=== PATIENT | male | born 1945 | race Caucasian/White ===

== ENCOUNTER 2017-12-28 17:49 | Emergency (ER) | payer MEDICARE ==
[~2017-12-28] VITALS: Ht 182.9 cm; Wt 119.0 kg
[2017-12-28 17:54] VITALS: BP 146/73; PULSE 68; RESP 18; TEMP 98.3; O2SAT 97
--- NOTE | 2017-12-28 18:27 | PD ---
HPI Chief Complaint: Skin Problem Time Seen by Provider: 18:12 Travel History International Travel<30 days: No Contact w/Intl Traveler<30days: No Traveled to known affect area: No History of Present Illness HPI Patient comes to the emergency department complaining of possible infection of his left foot began 3 or 4 days ago. Patient reports he chronically has edema in his bilateral lower extremities however his left lower extremities got worse over the past 3 days. Patient reports having a burning sensation over the posterior aspect of the heel and dorsal aspect of his left foot. Patient denies any known injury. Patient reports he did fly from [place] to [place] 2 weeks ago then 5 days ago drove from [place] to [place]. Patient reports he has been elevating his feet that was working until the past 3 days for the edema. Patient denies any fever, chest pain, shortness of breath, dyspnea on exertion, trauma, or IV drug use. PFSH Past Medical History Medical History: Denies Significant Hx Social History Alcohol Use: Yes Tobacco Use: No Substance Use: No Allergies-Medications (Allergen,Severity, Reaction): Coded Allergies: No Known Allergies (Unverified , 12/28/17) Reported Meds & Prescriptions Reported Meds & Active Scripts Active Clotrimazole AF Topical (Clotrimazole) 1% Cream 1 Applic TOPICAL BID Bactrim DS (Sulfamethoxazole-Trimethoprim) 800-160 Mg Tab 1 Tab PO BID Review of Systems Except as stated in HPI: all other systems reviewed are Neg Physical Exam Narrative GENERAL: Well-developed, overly nourished, in no acute distress, and non-ill appearing. SKIN: Mildly erythematous with flaking skin noted over the dorsal aspect of the left foot. It is tender to palpation. No crepitus, induration, fluctuation, or streaking. Appears slightly fungal in appearance possibly early cellulitis. HEAD: Atraumatic. Normocephalic. EYES: Pupils equal and round. EOMI. No scleral icterus. No injection or drainage. ENT: No nasal bleeding or discharge. Mucous membranes pink and moist. NECK: Trachea midline. Supple. No nuclear rigidity. CARDIOVASCULAR: Dorsal pulses 2+, intact, equal bilaterally. Capillary refill less than 2 seconds. RESPIRATORY: No accessory muscle use. No respiratory distress. MUSCULOSKELETAL: No obvious deformities. No clubbing. No cyanosis. 1+ nonpitting edema in the right lower extremity and 2+ nonpitting edema left lower extremity. Full range of motion. Ankle: Neagative anterior draw and Gracia test. Negative Sierra's sign. No laxity noted with passive inversion and eversion of BL ankles. Negative squeeze test. Pulses equal BL distal to injury. Capillary refill less than 2 seconds distal to injury and equal BL. Sensation equal BL 1st web space. FROM of toes distal to injury and equal BL. NV intact distal to injury and equal BL. Dorsal pulses equal BL. NEUROLOGICAL: Awake and alert. No obvious cranial nerve deficits. Motor grossly within normal limits. Normal speech. PSYCHIATRIC: Appropriate mood and affect; insight and judgment normal. Data Data Last Documented VS Vital Signs Date Time Temp Pulse Resp B/P (MAP) Pulse Ox O2 Delivery O2 Flow Rate FiO2 12/28/17 18:36 96 12/28/17 17:54 98.3 68 18 146/73 (97) Orders Orders Complete Blood Count With Diff (12/28/17 18:24) Basic Metabolic Panel (Bmp) (12/28/17 18:24) Act Partial Throm Time (Ptt) (12/28/17 18:24) Prothrombin Time / Inr (Pt) (12/28/17 18:24) Magnesium (Mg) (12/28/17 18:24) Iv Access Insert/Monitor (12/28/17 18:24) Ecg Monitoring (12/28/17 18:24) Oximetry (12/28/17 18:24) Oxygen Administration (12/28/17 18:24) Us Leg Venous Doppler (12/28/17 18:24) Sodium Chloride 0.9% Flush (Ns Flush) (12/28/17 18:30) Foot, Complete ([id number]) (12/28/17 ) Ed Discharge Order (12/28/17 20:42) Labs Laboratory Tests Test 12/28/17 18:35 White Blood Count 9.7 TH/MM3 Red Blood Count 4.41 MIL/MM3 Hemoglobin 13.5 GM/DL Hematocrit 38.8 % Mean Corpuscular Volume 88.1 FL Mean Corpuscular Hemoglobin 30.5 PG Mean Corpuscular Hemoglobin Concent 34.7 % Red Cell Distribution Width 12.7 % Platelet Count 198 TH/MM3 Mean Platelet Volume 8.4 FL Neutrophils (%) (Auto) 70.9 % Lymphocytes (%) (Auto) 15.6 % Monocytes (%) (Auto) 9.5 % Eosinophils (%) (Auto) 2.8 % Basophils (%) (Auto) 1.2 % Neutrophils # (Auto) 6.9 TH/MM3 Lymphocytes # (Auto) 1.5 TH/MM3 Monocytes # (Auto) 0.9 TH/MM3 Eosinophils # (Auto) 0.3 TH/MM3 Basophils # (Auto) 0.1 TH/MM3 CBC Comment DIFF FINAL Differential Comment Prothrombin Time 10.5 SEC Prothromb Time International Ratio 1.0 RATIO Activated Partial Thromboplast Time 28.7 SEC Blood Urea Nitrogen 12 MG/DL Creatinine 0.59 MG/DL Random Glucose 84 MG/DL Calcium Level 8.6 MG/DL Magnesium Level 2.1 MG/DL Sodium Level 138 MEQ/L Potassium Level 3.9 MEQ/L Chloride Level 105 MEQ/L Carbon Dioxide Level 25.4 MEQ/L Anion Gap 8 MEQ/L Estimat Glomerular Filtration Rate 136 ML/MIN MDM Medical Decision Making Medical Screen Exam Complete: Yes Emergency Medical Condition: Yes Interpretation(s) Last Impressions Lower Extremity Ultrasound 12/28/17 1824 Signed Impressions: Service Date/Time: Thursday, December 28, 2017 19:48 - CONCLUSION: Normal examination. Prominent inguinal lymph nodes Corbin Alcantara MD Foot X-Ray 12/28/17 0000 Signed Impressions: Service Date/Time: Thursday, December 28, 2017 18:45 - CONCLUSION: No acute bony findings Corbin Alcantara MD Differential Diagnosis Abscess, cellulitis, DVT, bone spur, tinea, dermatitis Narrative Course There is no evidence of necrotizing fasciitis at this time. There is no evidence of abscess. There is no evidence of local joint space involvement. There is no evidence of deep venous thrombosis. The patient will be discharged on antibiotics and topical antifungal. The patient was given signs and symptoms warnings for worsening infection, such as spreading of redness, increasing pain , and/or swelling, associated heat, or fever and instructed to return immediately if these signs or symptoms worsen. The patient is to follow up with physician or store receiver in 2 days for recheck or return here in 2 days for recheck if unable to establish outpatient follow up. Sooner if worsens or as needed. The patient agrees with plan. Patient in no obvious distress upon re-evaluation. All pertinent laboratory/ Radiology result(s) discussed with patient. Patient was asked if they wanted to speak to my attending, which the patient did not wish to do at this time. Any questions/concerns in reference to patient diagnosis/condition discussed and clarified prior to patient's discharge. Reinforced sheer importance of close follow up with patient's primary physician or primary care clinic, store receiver, or to return here in 2 days for recheck. Instructed patient to return to ED immediately, if symptoms return/worsen. Patient showed understanding of above instructions. Further instructions and recommendations were detailed in discharge paperwork. Patient ambulated without difficulty out of ED at discharge. Diagnosis Primary Impression: Left foot infection Referrals: Aamir Nesbitt DPM Patient Instructions: Athlete's Foot (ED), Cellulitis (ED), General Instructions Additional Instructions: Follow-up with your primary care physician, store receiver, return here in 2 days for recheck. Take all medication as prescribed. Return to the emergency department if symptoms get worse. Med/Other Pt SpecificInfo: Prescription(s) given Scripts Clotrimazole Topical (Clotrimazole AF Topical) 1% Cream 1 APPLIC TOPICAL BID for Infection, #15 GM 0 Refills Prov: Yamilex Mckenna MD 12/28/17 Sulfamethoxazole-Trimethoprim (Bactrim DS) 800-160 Mg Tab 1 TAB PO BID for Infection, #20 TAB 0 Refills Prov: Yamilex Mckenan MD 12/28/17 Disposition: 01 DISCHARGE HOME Condition: Stable Massimo Xie Dec 28, 2017 18:27
[2017-12-28] MEDS ORDERED: SODIUM CHLORIDE 0.9% FLUSH 10 ML FLUSH IVF PRN (18:30)
[2017-12-28 18:36] VITALS: O2SAT 96
[2017-12-28 18:42] LABS: AUTOMATED NEUTROPHIL # 6.9 TH/MM3 (1.8-7.7); BASOPHIL # 0.1 TH/MM3 (0-0.2); BASOPHIL % 1.2 % (0.0-2.0); EOSINOPHIL # 0.3 TH/MM3 (0-0.4); EOSINOPHIL % 2.8 % (0.0-4.0); HEMATOCRIT 38.8 % (39.0-51.0); HEMOGLOBIN 13.5 GM/DL (13.0-17.0); LYMPH % 15.6 % (9.0-44.0); LYMPHOCYTE # 1.5 TH/MM3 (1.0-4.8); MEAN CELL VOLUME 88.1 FL (80.0-100.0); MEAN CORPUSCULAR HEMOGLOBIN 30.5 PG (27.0-34.0); MEAN CORPUSCULAR HGB CONC 34.7 % (32.0-36.0); MEAN PLATELET VOLUME 8.4 FL (7.0-11.0); MONO % 9.5 % (0.0-8.0); MONOCYTE # 0.9 TH/MM3 (0-0.9); NEUT % 70.9 % (16.0-70.0); PLATELET COUNT 198 TH/MM3 (150-450); RED BLOOD COUNT 4.41 MIL/MM3 (4.50-5.90); RED CELL DISTRIBUTION WIDTH 12.7 % (11.6-17.2); WHITE BLOOD COUNT 9.7 TH/MM3 (4.0-11.0)
[2017-12-28 19:01] LABS: CALCIUM 8.6 MG/DL (8.5-10.1)
[2017-12-28 19:02] LABS: BICARBONATE 25.4 MEQ/L (21.0-32.0); MAGNESIUM 2.1 MG/DL (1.5-2.5)
[2017-12-28 19:05] LABS: CREATININE 0.59 MG/DL (0.60-1.30)
[2017-12-28 19:19] LABS: PROTHROMBIN TIME - PATIENT 10.5 SEC (9.8-11.6)
--- NOTE | 2017-12-28 19:48 | RADRPT ---
EXAM DATE/TIME: 12/28/2017 18:45 [facility] COMPARISON: No previous studies available for comparison. INDICATIONS : Left foot swelling. MEDICAL HISTORY : None. SURGICAL HISTORY : None. ENCOUNTER: Initial ACUITY: 3 days PAIN SCORE: 6/10 LOCATION: Left foot FINDINGS: Three view examination of the left foot demonstrates destructive change, dislocation, or fracture. The tarsal bones appear intact. The interphalangeal and metatarsophalangeal joints are intact. The calcaneus is intact. Bony mineralization is normal. Prominent diffuse soft tissue swelling CONCLUSION: No acute bony findings Corbin Alcantara MD on December 28, 2017 at 19:45 Board Certified Radiologist. This report was verified electronically.
--- NOTE | 2017-12-28 20:31 | RADRPT ---
EXAM DATE/TIME: 12/28/2017 19:48 [facility] COMPARISON: No previous studies available for comparison. INDICATIONS : Left leg swelling. MEDICAL HISTORY : Left leg increased swelling and redness. Chonic bilateral leg edema. SURGICAL HISTORY : None. ENCOUNTER: Initial ACUITY: 3 days PAIN SCORE: 5/10 LOCATION: Left leg. TECHNIQUE: Venous ultrasound of the leg was performed from the inguinal ligament to the proximal calf. Real-josé luis e, color Doppler and spectral tracing, compression and augmentation techniques were used. FINDINGS: There is normal compressibility of the deep venous system from the inguinal region to the proximal ca lf. No echogenic clot is seen in the lumen of the common femoral, femoral, popliteal, and posterior tibial veins. There is a normal response of the venous system to proximal and distal augmentation an d respiration. CONCLUSION: Normal examination. Prominent inguinal lymph nodes Corbin Alcantara MD on December 28, 2017 at 20:29 Board Certified Radiologist. This report was verified electronically.
[2017-12-28] MEDS ORDERED: BACT800T5 PO (20:40)
[2017-12-28] MEDS ORDERED: CLOT1CRE8 TOPICAL (20:40)
== END 2017-12-28 20:49 | disposition home or self-care (01) ==
LOC: EDBD 17:49 → PHEFT 17:49
DX: L08.9 Local infection of the skin and subcutaneous tissue, unspecified (principal); M79.89 Other specified soft tissue disorders
CPT/HCPCS: 73630; 80048; 83735; 85025; 85610; 85730; 93971; 99285